=== PATIENT | male | born 1965 | race Hispanic/Latino ===

== ENCOUNTER 2023-11-13 15:35 | Inpatient (IN) | payer BC ==
[~2023-11-13] VITALS: Ht 180.3 cm; Wt 90.1 kg
[~2023-11-13 15:35] MED LIST: BALS60OI TP; DOXY100C5 PO; FOLI1 PO; MVIT PO; THIA100V3 IV
[2023-11-13 16:38] LABS: BASOPHILS # (AUTO) 0.06 K/uL (0.00-0.20); BASOPHILS % (AUTO) 0.8 % (0.0-5.0); EOSINOPHILS # (AUTO) 0.22 K/uL (0.00-0.70); EOSINOPHILS % (AUTO) 2.8 % (0.0-8.0); HEMATOCRIT 28.4 % (42-54); IMMATURE GRANULOCYTE ABSOLUTE 0.03 K/uL (0-1); LYMPHOCYTES # (AUTO) 1.9 K/uL (1.0-4.8); LYMPHOCYTES % (AUTO) 24.1 % (21.0-51.0); MEAN CORPUSCULAR HEMOGLOBIN 34.4 pg (27.0-33.0); MEAN CORPUSCULAR HGB CONC 34.2 g/dL (32.0-36.0); MEAN CORPUSCULAR VOLUME 100.7 fL (79-99); MONOCYTES # (AUTO) 0.9 K/uL (0.1-1.0); MONOCYTES % (AUTO) 11.1 % (3.0-13.0); NEUTROPHILS # (AUTO) 4.7 K/uL (1.8-7.7); NEUTROPHILS % (AUTO) 60.8 % (40.0-77.0); PLATELET COUNT (AUTO) 126 K/uL (130-400); RED BLOOD CELL COUNT(AUTO) 2.82 MIL/uL (4.50-6.20); WHITE BLOOD COUNT (AUTO) 7.7 K/uL (4.8-10.8)
[2023-11-13] MEDS: FAMOTIDINE 20MG VIAL IV ONE (16:49)
[2023-11-13 16:52] LABS: CREATININE 0.9 mg/dL (0.5-1.3); POTASSIUM 3.2 mmol/L (3.5-5.1)
[2023-11-13 16:58] LABS: B-TYPE NATRIURETIC PEPTIDE 57 pg/mL (0-100)
[2023-11-13 16:59] LABS: ALBUMIN 1.5 g/dL (3.5-5.0); TOTAL PROTEIN, SERUM 6.7 g/dL (6.0-8.3)
[2023-11-13] MEDS: PoTASSium BIcarbonate/CIT AC 25 MEQ TABLET.EFF PO ONE (18:02)
[2023-11-13] MEDS: furoSEMIDE 40MG VIAL IV ONE (20:38)
[2023-11-13] MEDS: cefTRIAXone 1G VIAL IVPB ONE (20:38)
[2023-11-13] MEDS: INSULIN humuLIN R 100 UNIT/ML 3ML SQ SCH (21:00)
[2023-11-13] MEDS ORDERED: PoTASSium chl 10% ELIXIR 20MEQ 20 MEQ/15 ML UDCUP PO PRN (21:00)
[2023-11-13] MEDS ORDERED: DEXTROSE 50%-WATER 50 ML DISP.SYRIN IV PRN (21:00)
[2023-11-13] MEDS ORDERED: GLUCAGON 1MG KIT 1 MG ML IM PRN (21:00)
[2023-11-13] MEDS ORDERED: ondanSETRON 4MG INJ IV PRN (21:00)
[2023-11-13] MEDS ORDERED: PoTASSium chloRIDE 20MEQ/100ML 100 ML IV PRN (21:00)
[2023-11-13] MEDS: FAMOTIDINE 20MG VIAL IV SCH (21:00)
[2023-11-13] MEDS ORDERED: cefTRIAXone 1G VIAL 1 GM in 0.9%NACL 50ML 50 ML IV SCH (21:00)
[2023-11-13] MEDS: ALBUMIN (HUMAN) 25% 100 ML IV ONE ×2 (21:32→21:36)
[2023-11-13 21:55] LABS: ADD UA MICROSCOPIC YES; APPEARANCE,URINE CLEAR (CLEAR); BILIRUBIN,URINE NEGATIVE (NEGATIVE); COLOR,URINE LIGHT-YELLOW (YELLOW); GLUCOSE, URINE (UA) NEGATIVE (NEGATIVE); KETONES,URINE NEGATIVE (NEGATIVE); LEUKOCYTE ESTERASE ,URINE NEGATIVE Leu/uL (NEGATIVE); NITRATE,URINE NEGATIVE (NEGATIVE); OCCULT BLOOD,URINE NEGATIVE (NEGATIVE); PH,URINE 6.5 (5.0-8.0); PROTEIN,URINE NEGATIVE (NEGATIVE); UROBILINOGEN,URINE 0.2 mg/dL (0.2-1.0)
[2023-11-13 21:56] LABS: RBC,URINE 0-1 /HPF (0-1); WBC,URINE 0-1 /HPF (0-1)
[2023-11-13] MEDS: PoTASSium chloRIDE 20MEQ ER 20 MEQ ERTAB PO PRN (23:23)
[2023-11-13 23:50] VITALS: BP 115/62; PULSE 90; RESP 18; TEMP 97.8
[2023-11-14] VITALS (15 sets, daily range): BP systolic 119–155; BP diastolic 52–87; PULSE 78–106; RESP 17–20; TEMP 97.6–99.2; O2SAT 95–100
[2023-11-14] MEDS ORDERED: FERR325T29 PO (01:07)
[2023-11-14] MEDS ORDERED: FURO20TA4 PO (01:07)
[2023-11-14] MEDS ORDERED: HC2530C TP (01:11)
[2023-11-14 04:48] LABS: BASOPHILS # (AUTO) 0.07 K/uL (0.00-0.20); BASOPHILS % (AUTO) 1.1 % (0.0-5.0); EOSINOPHILS # (AUTO) 0.27 K/uL (0.00-0.70); EOSINOPHILS % (AUTO) 4.2 % (0.0-8.0); HEMATOCRIT 23.8 % (42-54); IMMATURE GRANULOCYTE ABSOLUTE 0.03 K/uL (0-1); LYMPHOCYTES # (AUTO) 1.8 K/uL (1.0-4.8); LYMPHOCYTES % (AUTO) 28.6 % (21.0-51.0); MEAN CORPUSCULAR HEMOGLOBIN 38.7 pg (27.0-33.0); MEAN CORPUSCULAR HGB CONC 38.2 g/dL (32.0-36.0); MEAN CORPUSCULAR VOLUME 101.3 fL (79-99); MONOCYTES # (AUTO) 0.7 K/uL (0.1-1.0); MONOCYTES % (AUTO) 11.2 % (3.0-13.0); NEUTROPHILS # (AUTO) 3.5 K/uL (1.8-7.7); NEUTROPHILS % (AUTO) 54.4 % (40.0-77.0); PLATELET COUNT (AUTO) 116 K/uL (130-400); RED BLOOD CELL COUNT(AUTO) 2.35 MIL/uL (4.50-6.20); RED CELL DISTRIBUTION WIDTH 14.7 % (11.0-15.5); WHITE BLOOD COUNT (AUTO) 6.4 K/uL (4.8-10.8)
[2023-11-14 05:16] LABS: ALBUMIN 1.6 g/dL (3.5-5.0); BILIRUBIN,TOTAL 2.5 mg/dL (0.2-1.0); CREATININE 0.8 mg/dL (0.5-1.3); MAGNESIUM 1.4 mg/dL (1.80-2.40); POTASSIUM 3.3 mmol/L (3.5-5.1); TOTAL PROTEIN, SERUM 6.2 g/dL (6.0-8.3)
[2023-11-14] MEDS: furoSEMIDE 20MG VIAL IV ONE (07:36)
[2023-11-14] MEDS: cefTRIAXone 1G VIAL IVPB SCH (09:21)
[2023-11-14] MEDS ORDERED: LORazepam 2 MG/ML 1 ML VIAL IVP PRN (14:30)
[2023-11-14] MEDS ORDERED: LACTULOSE 20 GM/30 ML UDCUP PO PRN (14:30)
[2023-11-14] MEDS ORDERED: PHARMACY COMMUNICATION MISC PRN (14:30)
[2023-11-14] MEDS ORDERED: ondanSETRON 4MG INJ IV PRN (14:30)
[2023-11-14] MEDS: SPIRONOLACTONE 25 MG TAB PO SCH (15:00)
[2023-11-14] MEDS ORDERED: PHARMACY COMMUNICATION MISC SCH (16:00)
[2023-11-14] MEDS ORDERED: IOHEXOL 350 MG/ML 100ML INFUS..BTL IV ONE (16:10)
[2023-11-14 17:08] LABS: BODY FLUID RBC 150 /cu. mm.; BODY FLUID WBC 169 /cu. mm.
[2023-11-14 17:09] LABS: APPEARANCE BODY FLUID CLOUDY (CLEAR); COLOR,BODY FLUID YELLOW (LT YELLOW); SPECIMENTYPE,BODY FLUID ASCITES; TOTAL VOLUME,BODY FLUID 5000 mL
[2023-11-14 17:16] LABS: INR 1.33 (0.85-1.15); PROTHROMBIN TIME 14.1 SEC (9.6-11.6)
[2023-11-14 17:17] LABS: PARTIAL THROMBOPLASTIN TIME 30.6 SEC (26.3-35.5)
[2023-11-14] MEDS: ALBUMIN (HUMAN) 25% 200 ML IV SCH (17:21)
[2023-11-14 18:20] LABS: BF EOSINOPHIL 1 %; BF LYMPHOCYTE 41 %; BF MACROPHAGE 31; BF MESOTHELIAL 4 %; BF TOTAL CELLS COUNTED 100
[2023-11-14] MEDS: chlordiazePOXIDE HCL 25 MG CAP PO PRN (21:20)
[2023-11-15] VITALS (19 sets, daily range): BP systolic 110–150; BP diastolic 57–85; PULSE 74–95; RESP 11–21; TEMP 97.7–99; O2SAT 97–98
[2023-11-15 05:08] LABS: HEMATOCRIT 21.5 % (42-54); MEAN CORPUSCULAR HEMOGLOBIN 43.4 pg (27.0-33.0); MEAN CORPUSCULAR HGB CONC 41.4 g/dL (32.0-36.0); MEAN CORPUSCULAR VOLUME 104.9 fL (79-99); RED BLOOD CELL COUNT(AUTO) 2.05 MIL/uL (4.50-6.20); RED CELL DISTRIBUTION WIDTH 15.1 % (11.0-15.5); WHITE BLOOD COUNT (AUTO) 5.6 K/uL (4.8-10.8)
[2023-11-15 05:47] LABS: BILIRUBIN,TOTAL 1.5 mg/dL (0.2-1.0); CREATININE 0.8 mg/dL (0.5-1.3); MAGNESIUM 1.4 mg/dL (1.80-2.40); POTASSIUM 3.5 mmol/L (3.5-5.1); THYROID STIMULATING HORMONE 10.11 uIU/mL (0.36-3.74); TOTAL PROTEIN, SERUM 6.3 g/dL (6.0-8.3)
[2023-11-15] MEDS: MAGNESIUM 2GM PREMIX 50ML 50 ML IV PRN (06:49)
[2023-11-15] MEDS ORDERED: LIDOCAINE PF 100MG/5ML (2%) SYRINGE 5ML ONE (13:30)
[2023-11-15] MEDS ORDERED: proPOFol 10 MG/ML 20ML VIAL IV ONE (13:30)
[2023-11-15] MEDS: MULTIVITAMIN TABLET PO SCH (16:01)
[2023-11-15] MEDS: furoSEMIDE 20 MG TABLET PO SCH (16:02)
[2023-11-15] MEDS: PROPRANOLOL HCL 20 MG TAB PO SCH (16:02)
[2023-11-15] MEDS: THIAMINE HCL 100 MG/ML 2ML VIAL IM SCH (16:14)
[2023-11-15] MEDS: FOLic ACID 1 MG TABLET PO SCH (16:14)
[2023-11-16 03:01] VITALS: BP 134/79; PULSE 74; RESP 20; TEMP 98.7
[2023-11-16 05:11] LABS: MEAN CORPUSCULAR HEMOGLOBIN 35.7 pg (27.0-33.0); MEAN CORPUSCULAR HGB CONC 35.6 g/dL (32.0-36.0); MEAN CORPUSCULAR VOLUME 100.4 fL (79-99); RED BLOOD CELL COUNT(AUTO) 2.49 MIL/uL (4.50-6.20); RED CELL DISTRIBUTION WIDTH 14.2 % (11.0-15.5); WHITE BLOOD COUNT (AUTO) 6.7 K/uL (4.8-10.8)
[2023-11-16 05:31] LABS: ALBUMIN 1.7 g/dL (3.5-5.0); BILIRUBIN,TOTAL 1.4 mg/dL (0.2-1.0); CREATININE 0.8 mg/dL (0.5-1.3); TOTAL PROTEIN, SERUM 5.9 g/dL (6.0-8.3)
[2023-11-16] MEDS ORDERED: levoTHYROxine 50 MCG TABLET PO SCH (06:30)
[2023-11-16 08:00] VITALS: BP 124/77; PULSE 77; RESP 19; TEMP 98.3; O2SAT 99
[2023-11-16 12:00] VITALS: BP 119/76; PULSE 69; RESP 19; TEMP 97.9
[2023-11-16] MEDS: PROPRANOLOL HCL 20 MG TAB PO SCH (13:23)
[2023-11-16] MEDS ORDERED: PROP20TA96 PO (14:09)
[2023-11-16] MEDS ORDERED: CIPR500T10 PO (14:09)
[2023-11-16] MEDS ORDERED: LACT PO (14:09)
[2023-11-16] MEDS ORDERED: FURO20TA4 PO (14:09)
[2023-11-16] MEDS ORDERED: SPIR25TA6 PO (14:09)
[2023-11-16] MEDS ORDERED: FAMO20TA8 PO (14:09)
[2023-11-16] MEDS ORDERED: CALC-1125 PO (21:02)
[2023-11-16] MEDS ORDERED: LACT10SO85 PO (21:02)
== END 2023-11-16 15:35 | disposition home or self-care (01) | DRG 871 ==
LOC: EDH 15:35 → EDHIP 20:50 → 4BH 23:40
PROVIDERS: ADMIT Internal Medicine; ATTEND Internal Medicine
PROC: 0W9G3ZZ Drainage of Peritoneal Cavity, Percutaneous Approach (ICD-10-PCS; principal; 2023-11-14)
PROC: 0DJ08ZZ Inspection of Upper Intestinal Tract, Via Natural or Artificial Opening Endoscopic (ICD-10-PCS; 2023-11-15)
DX: A41.89 Other specified sepsis (principal); E43 Unspecified severe protein-calorie malnutrition; I85.10 Secondary esophageal varices without bleeding; K70.31 Alcoholic cirrhosis of liver with ascites; E87.6 Hypokalemia; E11.9 Type 2 diabetes mellitus without complications; F17.200 Nicotine dependence, unspecified, uncomplicated; D69.59 Other secondary thrombocytopenia; K21.00 Gastro-esophageal reflux disease with esophagitis, without bleeding; D64.9 Anemia, unspecified; K80.20 Calculus of gallbladder without cholecystitis without obstruction; N50.89 Other specified disorders of the male genital organs; Z82.3 Family history of stroke; Z68.27 Body mass index [BMI] 27.0-27.9, adult; Z83.3 Family history of diabetes mellitus
CPT/HCPCS: 36415; 43235; 49083; 71045; 74178; 76700; 80048; 80053; 80076; 81001; 82042; 82140; 82550; 82948; 83605; 83735; 83880; 84145; 84443; 84484; 85025; 85027; 85610; 85730; 87040; 87071; 87086; 87186; 87205; 89051; 93005; C1729; G0378; J0696; J1940; J2001; J2704; J3411; J3475; J3490; P9046; Q9967; A4215; A4620

== ENCOUNTER 2023-11-16 18:26 | Emergency (ER) | payer BC ==
[~2023-11-16] VITALS: Ht 180.3 cm; Wt 89.8 kg
[~2023-11-16 18:26] MED LIST changes: -BALS60OI TP; +CIPR500T10 PO; -DOXY100C5 PO; +FAMO20TA8 PO; +FERR325T29 PO; -FOLI1 PO; +FURO20TA4 PO; +HC2530C TP; +LACT PO; -MVIT PO; +PROP20TA96 PO; +SPIR25TA6 PO; -THIA100V3 IV
--- NOTE | 2023-11-16 18:51 | ERN ---
ED Note History of Present Illness Stated Complaint: WEAKNESS Chief Complaint: Weakness Time Seen by MD: 18:30 Dictation: PATIENT IS A 58-YEAR-OLD MALE HERE WITH COMPLAINTS OF FEELING LIKE SHIT AND I KNEW I NEEDED TO COME BACK. HE STATES HE WAS ADMITTED TO THE HOSPITAL AT [facility] ON 11/12 FOR CIRRHOSIS OF THE LIVER UNCONTROLLED DIABETES HAD A PARACENTESIS AND THEN WENT HOME. STATES HE NEVER REALLY FELT BETTER SINCE HE LEFT AND IS NOW BACK TODAY FOR RE-EVALUATION AND TREATMENT. STATES HE USED TO DRINK HEAVILY UNTIL TWO WEEKS AGO HAS NOT HAD ANYTHING TO DRINK SINCE THEN. DOES NOT HAVE A PRIMARY CARE DOCTOR AND DOES NOT SEE A KITCHEN FOOD SERVER FOR HER CIRRHOSIS. ONLY UTILIZES THE DAY AND NIGHT CLINIC. Allergies: Coded Allergies: No Known Drug Allergies (Unverified Allergy, Unknown, 10/14/23) Home Meds Active Scripts Famotidine (Famotidine) 20 Mg Tablet, 20 MG PO DAILY for varices for 30 Days, #30 TAB 0 Refills Prov:VENKAT BEACH MD 11/16/23 Ciprofloxacin HCl (Ciprofloxacin HCl) 500 Mg Tablet, 500 MG PO BID for bacteremia for 7 Days, #14 TAB 0 Refills Prov:VENKAT BEACH MD 11/16/23 Lactulose (Cephulac/Enulose Soln) 20 Gram/30 Ml Soln, 20 GM PO AD PRN for liver disease for 30 Days, #30 ML 0 Refills 30 ml in morning and 30 ml before bed time . Prov:VENKAT BEACH MD 11/16/23 Propranolol HCl (Inderal) 20 Mg Tab, 20 MG PO BID for ascites for 14 Days, #28 TAB 0 Refills Prov:VENKAT BEACH MD 11/16/23 Spironolactone (Spironolactone) 25 Mg Tablet, 25 MG PO BID for decompensated liver cirrhosis for 30 Days, #60 TAB 0 Refills Prov:VENKAT BEACH MD 11/16/23 Furosemide (Furosemide) 20 Mg Tablet, 1 TAB PO DAILY for edema for 30 Days, #30 TAB 0 Refills Prov:VENKAT BEACH MD 11/16/23 Reported Medications Hydrocortisone (Hydrocort/Anusol Hc 2.5% Cream) 2.5 % Crm, 1 APPL TP BID LOWER EXTREMITIES REDNESS TILL RELIEVED. 11/14/23 Ferrous Sulfate (Ferosul) 325 Mg (65 Mg Iron) Tablet, 1 TAB PO DAILY 11/14/23 Discontinued Scripts Doxycycline Hyclate (Doxycycline Hyclate) 100 Mg Capsule, 250 MG PO BID, #4 CAP Prov:AGUSTIN TAYLOR [facility] 10/18/23 Multivitamins,Therapeutic (Multivitamin Tablet) 400 Mcg Tab, 1 TAB PO DAILY, #60 TAB Prov:AGUSTIN TAYLOR [facility] 10/18/23 Thiamine HCl (Thiamine HCl) 100 Mg/Ml Vial, 100 MG IV DAILY, #60 VIAL Prov:AGUSTIN TAYLOR [facility] 10/18/23 Folic Acid (Folvite) 1 Mg Tab, 1 MG PO DAILY, #30 TAB Prov:AGUSTIN TAYLOR [facility] 10/18/23 Balsam Lamont/Brooklet Oil (Venelex Ointment) 60 Gm Oint...g., 0 GM TP TID, #1 TUBE 0 Refills apply to affected area 3 times a day Prov:AGUSTIN TAYLOR [facility] 10/18/23 Past Medical History Past Medical History: Alcoholism, Diabetes-Type II, Liver Disease Additional Past Medical Hx: COVID Surgical History: None PSYCH History: no pertinent psych hx Social History: Smokers, ETOH RN Note Reviewed/Agreed w/PFSH: Yes Review of System Dictation CONSTITUTIONAL: NEGATIVE EXCEPT FOR HPI WEAKNESS HEAD/FACE: NEGATIVE EXCEPT FOR HPI EENT: NEGATIVE EXCEPT FOR HPI RESPIRATORY: NEGATIVE EXCEPT FOR HPI LOWER EXTREMITY SWELLING GASTROINTESTINAL/ABDOMINAL: NEGATIVE EXCEPT FOR HPI GENITOURINARY: NEGATIVE EXCEPT FOR HPI MUSCULOSKELETAL: NEGATIVE EXCEPT FOR HPI INTEGUMENTARY: NEGATIVE EXCEPT FOR HPI NEUROLOGICAL/PSYCH: NEGATIVE EXCEPT FOR HPI HEMATOLOGIC/LYMPHATIC: NEGATIVE EXCEPT FOR HPI ALL SYSTEMS NEGATIVE, EXCEPT NOTED ABOVE. 13 POINT REVIEW OF SYSTEMS ASSESSED AND ALL NEGATIVE EXCEPT FOR ABOVE. Initial Vital Sign VS Vital Signs Date Time Temp Pulse Resp B/P (MAP) Pulse Ox O2 Delivery O2 Flow Rate FiO2 11/16/23 18:29 97.9 73 16 132/72 100 Room Air 0 11/16/23 18:44 21 Physical Exam Dictation VITAL SIGNS REVIEWED GENERAL APPEARANCE: ALERT, ORIENTED X 3, PATIENT APPEARS WEAK MILDLY JAUNDICED HEAD AND FACE: NON-TRAUMATIC. EYES: PERRL, PINK CONJUNCTIVAS, EYELID NO TRAUMA, ANTERIOR CHAMBER WITH ARCUS SENILIS. EARS: PINNAS INTACT AND NO SIGNS OF TRAUMA OR ERYTHEMA EAR CANALS CLEAR AND NO DISCHARGE TM NO ERYTHEMA NOSE: NO DISCHARGE, NO BLEEDING. OROPHARYNX: MOUTH NORMAL, TONGUE PINK, PHARYNX CLEAR,NO ERYTHEMA, TONSILS NO EXUDATES, NO ABSCESSES NOTED, MUCOUS MEMBRANE MOIST NECK: SUPPLE, NON-TENDER, NO THYROMEGALY, NO MASSES, NO JVD, NO BRUITS BREAST:DEFERRED CHEST:NO TENDERNESS, NO CREPITUS, NO PARADOXICAL MOVEMENT, NO RETRACTIONS LUNGS:CLEAR, WELL-VENTILATED, SYMMETRIC, NO RALES, NO WHEEZING, NO RHONCHI, NO STRIDOR, GOOD BREATH SOUNDS BILATERALLY HEART: REGULAR RATE, REGULAR RHYTHM, NO MURMUR, NO GALLOPS VASCULAR: 3+ EDEMA BILATERAL LOWER EXTREMITIES TO THE KNEES PERIPHERAL EDEMA, ABDOMEN: SOFT, POSITIVE BOWEL SOUNDS, NONDISTENDED, NO GUARDING, NONTENDER, NO REBOUND, NO MASSES HEPATOMEGALY WITH ASCITES. RECTAL: DEFERRED GENITAL: DEFERRED NEUROLOGICAL: NORMAL SPEECH, MOTOR FUNCTION INTACT, SENSORY FUNCTION INTACT MUSCULOSKELETAL: NECK NONTENDER, FULL RANGE OF MOTION, BACK NONTENDER, FULL RANGE OF MOTION, EXTREMITIES: NONTENDER, FULL RANGE OF MOTION SKIN: COLOR PINK, DRY, NO TURGOR, NO RASH, NO LACERATIONS, NO ABRASIONS, NO CONTUSIONS. LYMPHATIC: DEFERRED Results (Laboratory/Radiology) Laboratory/Radiology Laboratory Tests Test 11/16/23 18:49 11/16/23 20:22 White Blood Count 7.7 K/uL (4.8-10.8) Red Blood Count 2.81 MIL/uL (4.50-6.20) L Hemoglobin 10.6 g/dL (14.0-18.0) L Hematocrit 29.0 % (42-54) L Mean Corpuscular Volume 103.2 fL (79-99) H Mean Corpuscular Hemoglobin 37.7 pg (27.0-33.0) H Mean Corpuscular Hemoglobin Concent 36.6 g/dL (32.0-36.0) H Red Cell Distribution Width 14.3 % (11.0-15.5) Platelet Count 139 K/uL (130-400) Mean Platelet Volume 9.6 fL (7.5-10.5) Immature Granulocyte % (Auto) 0.3 % (0-1) Neutrophils (%) (Auto) 59.6 % (40.0-77.0) Lymphocytes (%) (Auto) 28.0 % (21.0-51.0) Monocytes (%) (Auto) 7.1 % (3.0-13.0) Eosinophils (%) (Auto) 4.0 % (0.0-8.0) Basophils (%) (Auto) 1.0 % (0.0-5.0) Neutrophils # (Auto) 4.6 K/uL (1.8-7.7) Lymphocytes # (Auto) 2.2 K/uL (1.0-4.8) Monocytes # (Auto) 0.6 K/uL (0.1-1.0) Eosinophils # (Auto) 0.31 K/uL (0.00-0.70) Basophils # (Auto) 0.08 K/uL (0.00-0.20) Absolute Immature Granulocyte (auto 0.02 K/uL (0-1) Nucleated Red Blood Cells 0.0 % (0.0-0.19) Troponin I High Sensitivity 4 ng/L (4-75) Sodium Level 140 mmol/L (136-145) Potassium Level 4.0 mmol/L (3.5-5.1) Chloride Level 109 mmol/L (101-111) Carbon Dioxide Level 30 mmol/L (21-32) Blood Urea Nitrogen 7 mg/dL (7-18) Creatinine 0.8 mg/dL (0.5-1.3) Glomerular Filtration Rate Calc 104 mL/min (>90) Random Glucose 101 mg/dL (70-105) Total Calcium 8.0 mg/dL (8.5-10.1) L Total Bilirubin 1.2 mg/dL (0.2-1.0) H Aspartate Amino Transf (AST/SGOT) 38 U/L (10-37) H Alanine Aminotransferase (ALT/SGPT) 18 U/L (12-78) Alkaline Phosphatase 170 U/L (50-136) #H Ammonia 73 umol/L (11-32) H Total Protein 6.5 g/dL (6.0-8.3) Albumin 1.9 g/dL (3.5-5.0) L Labs Reviewed?: Yes EKG Comment: EKG NORMAL SINUS RHYTHM/HEART RATE 71/AXIS NORMAL/NO ECTOPY. ED Course ED Course Orders Procedure Category Date Status Time Cbc With Differential LAB 11/16/23 Complete 18:44 Troponin I High LAB 11/16/23 Complete Sensitivity 18:44 12 Lead Ekg Tracing- EKG 11/16/23 Complete Technical 18:44 Ammonia LAB 11/16/23 Complete 19:11 Comprehensive LAB 11/16/23 Complete Metabolic Panel 19:11 Lactulose 20 Gm/30 Ml PHA 11/16/23 Verified Udcup (Constulose 21:00 Vital Signs Date Time Temp Pulse Resp B/P (MAP) Pulse Ox O2 Delivery O2 Flow Rate FiO2 11/16/23 19:18 98.8 77 18 137/72 99 Room Air* 0 21 11/16/23 18:44 74 18 137/72 100 Room Air* 0 11/16/23 18:29 97.9 73 16 132/72 100 Room Air 0 TWO THOUSAND ONE HUNDRED, PATIENT IS HEMODYNAMICALLY STABLE, AMMONIA 72 WE WILL BE GIVEN 20 G PRIOR TO DISCHARGED HOME TOLD TO SEE HIS PRIMARY CARE DOCTOR A [employer] FOOD SERVER IN 1-2 DAYS. HEART Score Response (Comments) Value History: Low suspicion (0) 0 Age: 45-65yrs (+1) 1 Risk Factors: 1-2 risk factors (+1) 1 Initial Troponin: Normal limit (0) 0 Total 2 Medical Decision Making MDM MDM: DIFFERENTIAL DIAGNOSIS: ACS/AMI/ELECTROLYTE IMBALANCE/DEHYDRATION/UNCONTROLLED DIABETES/HYPERAMMONEMIA RATIONALE: TESTS CONSIDERED AND ORDERED SECONDARY TO SHARED DECISION MAKING INCLUDE: EKG/LABS PREVIOUS OUTSIDE RECORDS REVIEWED: OLD ER VISITS. REVIEWED RISK OF COMPLICATION AND/OR MORBIDITY OR MORTA NO SEE NURSE'S NOTES RITERIA FOR HOSPITALIZATION. SEE NURSE'S NOTES NEED FOR EMERGENCY MAJOR/MINOR SURGERY: NO THERE ARE NO SOCIAL CONCERNS WITH THIS PATIENT. LACTULOSE PRESCRIPTIONS WILL INCLUDE SYMPTOMATIC CARE PATIENT'S PRIOR EXTERNAL MEDICAL RECORDS FROM OTHER ER VISITS WERE REVIEWED BY ME INDICATED. PRIOR TESTING AND RESULTS FROM PREVIOUS VISITS WERE REVIEWED. PRIOR TESTS WERE TAKEN INTO ACCOUNT WITH MEDICAL DECISION MAKING AND RESOURCE UTILIZATION, INDEPENDENT HISTORIAN/HISTORIANS WERE USED TO OBTAIN COMPLETE MEDICAL HISTORY. I INDEPENDENTLY INTERPRETED THE TEST THAT WERE PERFORMED, RESULTS WERE REVIEWED BY ME AND CONSIDERED FINDINGS ON RADIOLOGY IF ORDERED. MEDICAL MANAGEMENT AND EXAMINATION INTERPRETATION DISCUSSIONS WERE HAD BY ME WITH OTHER QUALIFIED HEALTHCARE PROFESSIONALS INDICATED FOR THE PATIENT'S CARE. DX & DISP Disposition: Discharge Departure Impression: Primary Impression: Hyperammonemia Additional Impressions: Uncontrolled diabetes mellitus, Hypocalcemia, Chronic anemia, Alcoholic cirrhosis of liver Condition: Stable Scripts Lactulose (Lactulose) 10 Gram/15 Ml Solution 10 GM PO BID for 10 Days, #250 ML Prov: VIOLA GRANT NP 11/16/23 Calcium Carbonate (Calcium) 600 Mg Calcium (1500 Mg) Tablet 600 MG PO BID for 7 Days, #14 TAB Prov: VIOLA GRANT NP 11/16/23 Additional Instructions: FOLLOW-UP WITH PRIMARY CARE PROVIDER IN 1 TO 2 DAYS. TAKE MEDICATIONS DIRECTED HERE IN THE EMERGENCY ROOM. OKAY TO CONTINUE HOME MEDICATIONS UNLESS OTHERWISE DISCUSSED DURING YOUR VISIT IN THE EMERGENCY ROOM TODAY. RETURN TO YOUR NEAREST EMERGENCY ROOM IF SYMPTOMS WORSEN OR IF THERE IS NO IMPROVEMENT. CALL 911 IF YOU NEED IMMEDIATE ASSISTANCE. TAKE TYLENOL OR MOTRIN OVER -THE-COUNTER NEEDED AND IF NO CONTRAINDICATIONS ARE PRESENT. INCREASE ORAL HYDRATION. A WOUND CULTURE OR URINE CULTURE WAS ORDERED HERE IN THE EMERGENCY ROOM DEPARTMENT PLEASE FOLLOW-UP WITH PRIMARY CARE PROVIDER AND ADVISE THEM TO GET REPEAT PORTS FROM OUR FACILITY. IF YOU HAD ANY ROGELIO WRAP/SPLINTS THAT WERE APPLIED HERE, PLEASE DO NOT REMOVE THEM UNTIL YOU SEE YOUR PRIMARY CARE OR SPECIALTY. TAKE CALCIUM SUPPLEMENT AND LACTULOSE DIRECTED. FOLLOW UP WITH KITCHEN FOOD SERVER IN 1-2 DAYS, CALL FOR AN APPOINTMENT. Referrals: Audrey PERAZA MD (PCP) DEMARCUS ARIZA MD Time of Disposition: 21:00 I have reviewed the case, and I agree with, Diagnosis and Plan VIOLA GRANT NP Nov 16, 2023 18:51
[2023-11-16 19:00] LABS: BASOPHILS # (AUTO) 0.08 K/uL (0.00-0.20); EOSINOPHILS # (AUTO) 0.31 K/uL (0.00-0.70); IMMATURE GRANULOCYTE ABSOLUTE 0.02 K/uL (0-1); LYMPHOCYTES # (AUTO) 2.2 K/uL (1.0-4.8); MEAN CORPUSCULAR HEMOGLOBIN 37.7 pg (27.0-33.0); MEAN CORPUSCULAR HGB CONC 36.6 g/dL (32.0-36.0); MEAN CORPUSCULAR VOLUME 103.2 fL (79-99); MONOCYTES # (AUTO) 0.6 K/uL (0.1-1.0); MONOCYTES % (AUTO) 7.1 % (3.0-13.0); NEUTROPHILS # (AUTO) 4.6 K/uL (1.8-7.7); NEUTROPHILS % (AUTO) 59.6 % (40.0-77.0); PLATELET COUNT (AUTO) 139 K/uL (130-400); RED BLOOD CELL COUNT(AUTO) 2.81 MIL/uL (4.50-6.20); RED CELL DISTRIBUTION WIDTH 14.3 % (11.0-15.5); WHITE BLOOD COUNT (AUTO) 7.7 K/uL (4.8-10.8)
--- NOTE | 2023-11-16 19:03 | EKG ---
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
[2023-11-16 19:18] VITALS: BP 137/72; PULSE 77; RESP 18; TEMP 98.8; O2SAT 99
[2023-11-16 20:48] LABS: ALBUMIN 1.9 g/dL (3.5-5.0); BILIRUBIN,TOTAL 1.2 mg/dL (0.2-1.0); CREATININE 0.8 mg/dL (0.5-1.3); TOTAL PROTEIN, SERUM 6.5 g/dL (6.0-8.3)
[2023-11-16] MEDS ORDERED: LACT10SO85 PO (21:02)
[2023-11-16] MEDS ORDERED: CALC-1125 PO (21:02)
[2023-11-16] MEDS: LACTULOSE 20 GM/30 ML UDCUP PO ONE (21:04)
== END 2023-11-16 21:17 | disposition home or self-care (01) ==
LOC: EDH 18:26
DX: E72.20 Disorder of urea cycle metabolism, unspecified (principal); E11.65 Type 2 diabetes mellitus with hyperglycemia; E83.51 Hypocalcemia; D64.9 Anemia, unspecified; K70.30 Alcoholic cirrhosis of liver without ascites; F17.200 Nicotine dependence, unspecified, uncomplicated; Z79.899 Other long term (current) drug therapy; Z86.16 Personal history of COVID-19
CPT/HCPCS: 36415; 80053; 82140; 84484; 85025; 93005